=== PATIENT | female | born 1985 | race Caucasian/White ===

== ENCOUNTER 2022-10-10 08:40 | Emergency (ER) | payer MEDICAID ==
[~2022-10-10] VITALS: Ht 160 cm; Wt 58.1 kg
[2022-10-10 08:53] VITALS: BP 116/78
--- NOTE | 2022-10-10 09:56 | NUR ---
CALLED CÉSAR OBRIEN TO VERIFY REPORT WAS MADE. VERIFIED WITH DISPATCH TODD. REPORT # [id number], OFFICER Venita NAVAS [id number]
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
== END 2022-10-10 10:08 | disposition home or self-care (01) ==
LOC: MED 08:40
DX: S50.312A Abrasion of left elbow, initial encounter (principal); Z72.89 Other problems related to lifestyle; T74.21XA Adult sexual abuse, confirmed, initial encounter; Y93.89 Activity, other specified; Y92.89 Other specified places as the place of occurrence of the external cause; Y99.8 Other external cause status
CPT/HCPCS: 99283